=== PATIENT | male | born 1990 | race Caucasian/White ===

== ENCOUNTER 2017-07-26 10:21 | Day surgery (SDC) | payer OTHER ==
[2017-07-25 14:16] VITALS: BMI 29.2
[2017-07-26 10:44] VITALS: TEMP 98.4
[2017-07-26] MEDS ORDERED: MIDAZOLAM HCL 2 MG/2 ML SINGLE DOSE VIAL ONE ×2 (11:43)
[2017-07-26] MEDS ORDERED: PROPOFOL 20 ML ONE ×2 (11:43→12:20)
[2017-07-26] MEDS ORDERED: ceFAZolin SODIUM 1 GM VIAL ONE (11:59)
[2017-07-26] MEDS ORDERED: ceFAZolin SODIUM 1 GM VIAL IVPB ONE (12:02)
[2017-07-26] MEDS ORDERED: LIDOCAINE HCL/PF 2% SDV 5ML VIAL ONE (12:02)
[2017-07-26] MEDS ORDERED: LIDOCAINE HCL/PF 2% SDV 5ML VIAL INF ONE (12:17)
[2017-07-26] MEDS ORDERED: ONDANSETRON 4 MG/2 ML VIAL ONE (12:22)
[2017-07-26] MEDS ORDERED: BACITRACIN 15 GM TUBE TOPICAL OINTMENT ONE (12:28)
[2017-07-26] MEDS ORDERED: ONDANSETRON 4 MG/2 ML VIAL IVPB PRN (12:41)
[2017-07-26] MEDS ORDERED: oxyCODONE HCL 5 MG TABLET PO PRN ×2 (12:41)
[2017-07-26] MEDS ORDERED: LACTATED RINGERS SOLUTION 1,000 ML IV SCH (12:45)
--- NOTE | 2017-07-26 12:45 | OP ---
Operative Note - Note: Operative Date: 07/26/17 Pre-Operative Diagnosis: foreign body left hand Operation: removal foreign body left hand Findings: foreign body deep to palmar apeneurosis left hand Post-Operative Diagnosis: Same as Pre-op Surgeon: Weston Fernandez Anesthesia: Local, MAC Specimens Removed: foreign body left hand Estimated Blood Loss (mls): 2 Operative Report Dictated: Yes
--- NOTE | 2017-07-26 13:49 | OP ---
DATE OF OPERATION: 07/26/2017 TITLE OF PROCEDURE: Exploration removal of foreign body to the palm of the left hand. PREOPERATIVE DIAGNOSIS: Foreign body of the deep tissues of the left hand. POSTOPERATIVE DIAGNOSIS: Foreign body of the deep tissues of the left hand. ATTENDING SURGEON: Weston Summers MD BANQUET LEAD: There were no assistants. ANESTHESIA: Monitored sedation with a total of 4 mL of 2% lidocaine plain given as a local anesthetic. DESCRIPTION OF PROCEDURE: Patient was counseled on all risks, benefits, and alternatives to the procedure, understands, agrees to proceed. He was brought to the operating room, placed in a supine position. A gram of Ancef was given preoperatively. Patient was covered in protective lead. Position was carefully checked by surgical and anesthesia teams. The time-out was called. Patient, procedure, and side site were verified. A fluoroscopy was used to reimage the foreign body, which was then localized at the inferior extent of the scar on the palm of the patients left hand. The local anesthesia was injected. The hand was then elevated, Esmarch exsanguinated, and tourniquet was elevated for a total tourniquet time of 10 minutes, tourniquet pressure of 250 mmHg. Under tourniquet control, the existing scar was reopened and spreading of the Littler scissors, only without cutting, reveals a tip of the foreign body which is poking through the palmar aponeurosis. This is removed, which continued just slightly deep to the palmar aponeurosis. Exploration along its track revealed that the entirety of the fragment was removed. The fragment was a small radiopaque fragment which was consistent with what was seen on the preoperative fluoroscopy visualization as well as the preoperative x-rays. Fluoroscopy was then brought back into the field and several views of the hand were obtained once again to assure that there was no residual foreign body, and this was assured. The wound was then copiously irrigated with 50 mL of normal saline. A very loose closure with only three simple 4-0 nylon sutures were placed, leaving adequate space for drainage and bleeding as needed. The wound was then dressed with bacitracin and Xeroform. With the tourniquet released, all fingertips were pink and viable at the end of the procedure. There was no pulsatile bleeding. The hand was dressed with bacitracin, Xeroform, bulky gauze, Kerlix, Ward, and a 3-inch Naveed wrap noncompressive. Hand was elevated in a sling. Patient was awoken from anesthesia, transferred to recovery without complications. WESTON SUMMERS M.D. [id number]
[2017-07-26 15:45] VITALS: BP 122/65; PULSE 70
--- NOTE | 2017-07-27 10:31 | PATH ---
Surgical Pathology Report Patient Name: ANGEL LEE Med. Rec. #: [id number] /Age/Gender: 1990 (Age: 26) / M Account: [id number] Location: [facility] SURGICAL Taken: 07/26/2017 Received: 07/26/2017 Reported: 07/27/2017 Physicians: Weston Fernandez Specimen(s) Received FOREIGN BODY LEFT HAND Clinical History Foreign body left hand Final Diagnosis FOREIGN BODY, LEFT HAND, REMOVAL: FOREIGN BODY (GROSS ONLY). Electronically Signed Kevin Espinal M.D. Gross Description Received fresh labeled "foreign body left hand," is a less than 0.1 cm in greatest dimension brown, irregular, hard foreign body. No soft tissue is present. No sections are submitted, gross only. /07/26/201707/26/2017
== END 2017-07-26 14:00 | disposition home or self-care (01) ==
LOC: JASU-SURG 10:21 → EDBD 14:00 → JASU-SURG 14:00
PROVIDERS: ATTEND Plastic Surgery
PROC: BW1JZZZ Fluoroscopy of Upper Extremity (ICD-10-PCS; principal; 2017-07-26 14:00)
DX: M79.5 Residual foreign body in soft tissue (principal)
CPT/HCPCS: 76000-TC; 88300-TC